=== PATIENT | male | born 1990 | race Caucasian/White ===

== ENCOUNTER 2019-04-27 10:34 | Emergency (ER) | payer SELFPAY ==
[~2019-04-27] VITALS: Ht 170.2 cm; Wt 71.3 kg
[2019-04-27 10:36] VITALS: BP 136/73
== END 2019-04-27 11:10 | disposition home or self-care (01) ==
LOC: ED 10:50
DX: K08.89 Other specified disorders of teeth and supporting structures (principal)
CPT/HCPCS: 99283